=== PATIENT | male | born 1975 | race Caucasian/White ===

== ENCOUNTER 2023-06-30 08:55 | Emergency (ER) | payer BC ==
[~2023-06-30] VITALS: Ht 167.6 cm; Wt 98.6 kg
[2023-06-30] MEDS ORDERED: IBUP-1986 PO (10:38)
[2023-06-30] MEDS ORDERED: AMOX-117 PO (10:38)
[2023-06-30 10:58] VITALS: BP 139/99; PULSE 74; RESP 17; TEMP 98.6; O2SAT 96
--- NOTE | 2023-06-30 11:35 | NUR ---
I AGREE WITH THE ASSESSMENT DONE BY [facility] LVN.
== END 2023-06-30 11:01 | disposition home or self-care (01) ==
LOC: ER 08:56
DX: K05.10 Chronic gingivitis, plaque induced (principal); K02.7 Dental root caries; F12.10 Cannabis abuse, uncomplicated; Z79.899 Other long term (current) drug therapy
CPT/HCPCS: 99283